=== PATIENT | male | born 1965 | race African-American/Black ===

== ENCOUNTER 2019-05-16 16:26 | Inpatient (IN) | payer SELFPAY ==
[~2019-05-16] VITALS: Ht 188 cm; Wt 89.4 kg
[2019-05-16] MEDS ORDERED: SODIUM CHLORIDE 0.9% 1,000 ML IV ONE (16:42)
[2019-05-16 17:40] LABS: BASOPHILS % 0.4 % (0.0-2.0); EOSINOPHILS % 0.7 % (0.0-5.0); HEMOGLOBIN. 14.5 g/dL (14.0-18.0); MEAN CORPUSCULAR HEMOGLOBIN 32.5 pg (28.0-32.0); MEAN CORPUSCULAR VOLUME 94.3 fL (80.0-94.0); MEAN PLATELET VOLUME 7.5 fl (7.4-10.4); MONOCYTES % 8.5 % (2.0-8.0); NEUTROPHILS % 65.4 % (40.0-76.0); PLATELET 182 x1000/uL (130-400); RED BLOOD CELL COUNT 4.45 mill/uL (4.7-6.1); RED CELL DISTRIBUTION WIDTH 14.4 % (11.6-14.6)
[2019-05-16 17:45] LABS: CHLORIDE 104 mEq/L (98-107)
[2019-05-16 17:48] LABS: PARTIAL THROMBOPLASTIN TIME 23.3 sec (23.4-31.0); PROTHROMBIN TIME 10.7 sec (9.6-11.0)
[2019-05-16 17:49] LABS: ETHANOL BLOOD < 10 mg/dL
[2019-05-16 17:51] LABS: LDL CHOLESTEROL 129 mg/dL (5-100)
[2019-05-16] MEDS ORDERED: ASPIRIN 325MG EC TABLET PO ONE (21:45)
[2019-05-16] MEDS ORDERED: IOHEXOL-350 100 ML BOTTLE ONE (23:00)
[2019-05-17] MEDS ORDERED: ONDANSETRON HCL 4MG/2ML INJ IV PRN (07:30)
[2019-05-17] MEDS ORDERED: ACETAMINOPHEN 325MG TABLET PO PRN (07:30)
[2019-05-17 09:02] LABS: CLARITY URINE CLEAR (CLEAR); COLOR URINE DARK YELLOW (YELLOW); KETONES URINE TRACE (NEGATIVE); LEUKOCYTE ESTERASE URINE NEGATIVE (NEGATIVE); NITRITE URINE NEGATIVE (NEGATIVE); OCCULT BLOOD URINE TRACE (NEGATIVE); PROTEIN URINE NEGATIVE (NEGATIVE); SPECIFIC GRAVITY URINE 1.033 (1.005-1.030)
[2019-05-17 09:24] LABS: *AMPHETAMINES SCREEN URINE NEGATIVE (NEGATIVE); *BARBITURATES SCREEN URINE NEGATIVE (NEGATIVE); *BENZODIAZEPINES SCREEN URINE NEGATIVE (NEGATIVE); *COCAINE SCREEN URINE NEGATIVE (NEGATIVE); CANNABINOID URINE SCREEN NEGATIVE (NEGATIVE); METHADONE URINE SCREEN NEGATIVE (NEGATIVE); OPIATES URINE SCREEN NEGATIVE (NEGATIVE); PHENCYCLIDINE URINE SCREEN NEGATIVE (NEGATIVE)
[2019-05-17] MEDS ORDERED: ENOXAPARIN 40MG/0.4ML SYR SUBCUT SCH (10:00)
[2019-05-17 10:15] VITALS: BP 159/90
[2019-05-17 12:00] VITALS: BP 144/92
[2019-05-17 16:00] VITALS: BP_SYST 129; BP_SYST 133; BP_DIAS 78; BP_DIAS 85
[2019-05-17] MEDS: ENOXAPARIN 40MG/0.4ML SYR SUBCUT SCH (16:24)
[2019-05-17] MEDS: ASPIRIN 81MG TABLET PO SCH (16:31)
[2019-05-17 20:00] VITALS: BP 152/92
[2019-05-17] MEDS: ATORVASTATIN CALCIUM 40MG TABLET PO SCH (20:19)
[2019-05-17 20:30] VITALS: BP 140/62
[2019-05-18] VITALS (7 sets, daily range): BP systolic 116–135; BP diastolic 69–76
[2019-05-18] MEDS: ASPIRIN 81MG TABLET PO SCH (08:49)
[2019-05-18] MEDS: POTASSIUM CHLORIDE 20MEQ TABLET SR PO SCH (08:49)
[2019-05-18 09:42] LABS: BASOPHILS % 0.5 % (0.0-2.0); EOSINOPHILS % 1.8 % (0.0-5.0); HEMATOCRIT. 40.9 % (42.0-52.0); HEMOGLOBIN. 14.1 g/dL (14.0-18.0); LYMPHOCYTES % 38.4 % (20.0-50.0); MEAN CORPUSCULAR HEMOGLOBIN 32.6 pg (28.0-32.0); MEAN CORPUSCULAR VOLUME 94.5 fL (80.0-94.0); MEAN PLATELET VOLUME 7.6 fl (7.4-10.4); MONOCYTES % 9.1 % (2.0-8.0); NEUTROPHILS % 50.2 % (40.0-76.0); PLATELET 202 x1000/uL (130-400); RED BLOOD CELL COUNT 4.33 mill/uL (4.7-6.1); RED CELL DISTRIBUTION WIDTH 14.6 % (11.6-14.6)
[2019-05-18 09:48] LABS: CHLORIDE 104 mEq/L (98-107)
[2019-05-18] MEDS: CLOPIDOGREL 75MG TABLET PO SCH (11:22)
[2019-05-18] MEDS ORDERED: AMLODIPINE 2.5MG TABLET PO SCH (11:30)
[2019-05-18] MEDS ORDERED: ASPIRIN 81MG EC TABLET PO SCH (11:30)
[2019-05-18] MEDS: ENOXAPARIN 40MG/0.4ML SYR SUBCUT SCH (13:06)
[2019-05-18 17:02] LABS: T4 FREE 1.17 ng/dL (0.76-1.46)
[2019-05-18 17:12] LABS: FOLIC ACID (FOLATE) SERUM 17.1 ng/mL (>5.38)
[2019-05-18] MEDS: ATORVASTATIN CALCIUM 40MG TABLET PO SCH (20:40)
[2019-05-19] VITALS: BP 108/49
[2019-05-19 04:00] VITALS: BP 145/86
[2019-05-19 07:18] LABS: BASOPHILS % 0.7 % (0.0-2.0); EOSINOPHILS % 2.1 % (0.0-5.0); HEMATOCRIT. 39.8 % (42.0-52.0); HEMOGLOBIN. 13.8 g/dL (14.0-18.0); LYMPHOCYTES % 40.9 % (20.0-50.0); MEAN CORPUSCULAR HEMOGLOBIN 32.9 pg (28.0-32.0); MEAN CORPUSCULAR VOLUME 94.5 fL (80.0-94.0); MEAN PLATELET VOLUME 7.4 fl (7.4-10.4); MONOCYTES % 8.3 % (2.0-8.0); PLATELET 196 x1000/uL (130-400); RED BLOOD CELL COUNT 4.21 mill/uL (4.7-6.1); RED CELL DISTRIBUTION WIDTH 14.2 % (11.6-14.6)
[2019-05-19 08:00] VITALS: BP 124/83
[2019-05-19 08:02] LABS: CHLORIDE 106 mEq/L (98-107)
[2019-05-19] MEDS: POTASSIUM CHLORIDE 20MEQ TABLET SR PO SCH (09:06)
[2019-05-19] MEDS: ASPIRIN 81MG EC TABLET PO SCH (09:07)
[2019-05-19] MEDS: CLOPIDOGREL 75MG TABLET PO SCH (09:07)
[2019-05-19] MEDS: AMLODIPINE 2.5MG TABLET PO SCH (09:07)
[2019-05-19 12:00] VITALS: BP 138/88
[2019-05-19] MEDS: ENOXAPARIN 40MG/0.4ML SYR SUBCUT SCH (13:10)
[2019-05-19] MEDS ORDERED: ENOXAPARIN 60MG/0.6ML SYR SUBCUT SCH (15:15)
[2019-05-19 15:48] VITALS: BP 138/92
[2019-05-19] MEDS: CLONIDINE 0.1MG TABLET PO PRN (16:31)
[2019-05-19 20:00] VITALS: BP 130/81
[2019-05-19] MEDS: ATORVASTATIN CALCIUM 40MG TABLET PO SCH (20:50)
[2019-05-20] VITALS: BP 144/97
[2019-05-20 04:00] VITALS: BP 133/90
[2019-05-20 05:30] LABS: CHLORIDE 107 mEq/L (98-107)
[2019-05-20 05:31] LABS: BASOPHILS % 0.5 % (0.0-2.0); EOSINOPHILS % 1.9 % (0.0-5.0); HEMOGLOBIN. 14.2 g/dL (14.0-18.0); LYMPHOCYTES % 48.6 % (20.0-50.0); MEAN CORPUSCULAR HEMOGLOBIN 33.5 pg (28.0-32.0); MEAN CORPUSCULAR VOLUME 94.4 fL (80.0-94.0); MEAN PLATELET VOLUME 7.3 fl (7.4-10.4); MONOCYTES % 8.7 % (2.0-8.0); NEUTROPHILS % 40.3 % (40.0-76.0); PLATELET 202 x1000/uL (130-400); RED BLOOD CELL COUNT 4.24 mill/uL (4.7-6.1); RED CELL DISTRIBUTION WIDTH 14.2 % (11.6-14.6)
[2019-05-20 08:00] VITALS: BP 140/111
[2019-05-20] MEDS: POTASSIUM CHLORIDE 20MEQ TABLET SR PO SCH (09:02)
[2019-05-20] MEDS: ASPIRIN 81MG EC TABLET PO SCH (09:03)
[2019-05-20] MEDS: CLONIDINE 0.1MG TABLET PO PRN (09:03)
[2019-05-20] MEDS: CLOPIDOGREL 75MG TABLET PO SCH (09:03)
[2019-05-20] MEDS: AMLODIPINE 2.5MG TABLET PO SCH (09:03)
[2019-05-20] MEDS: ENOXAPARIN 100MG/ML SYR SUBCUT SCH ×2 (09:04→22:23)
[2019-05-20 12:00] VITALS: BP 114/62
[2019-05-20 16:00] VITALS: BP 123/85
[2019-05-20 20:00] VITALS: BP 136/88
[2019-05-20] MEDS: ATORVASTATIN CALCIUM 40MG TABLET PO SCH (22:23)
[2019-05-21] VITALS: BP 147/94
[2019-05-21 04:00] VITALS: BP 138/92
[2019-05-21 07:59] LABS: BASOPHILS % 0.4 % (0.0-2.0); EOSINOPHILS % 2.3 % (0.0-5.0); HEMATOCRIT. 41.1 % (42.0-52.0); HEMOGLOBIN. 14.5 g/dL (14.0-18.0); MEAN CORPUSCULAR HEMOGLOBIN 33.1 pg (28.0-32.0); MEAN CORPUSCULAR VOLUME 94.2 fL (80.0-94.0); MEAN PLATELET VOLUME 7.1 fl (7.4-10.4); MONOCYTES % 9.8 % (2.0-8.0); NEUTROPHILS % 39.5 % (40.0-76.0); PLATELET 211 x1000/uL (130-400); RED BLOOD CELL COUNT 4.36 mill/uL (4.7-6.1); RED CELL DISTRIBUTION WIDTH 14.3 % (11.6-14.6)
[2019-05-21 08:00] VITALS: BP 133/88
[2019-05-21 08:17] LABS: CHLORIDE 107 mEq/L (98-107)
[2019-05-21] MEDS: POTASSIUM CHLORIDE 20MEQ TABLET SR PO SCH (08:49)
[2019-05-21] MEDS: CLOPIDOGREL 75MG TABLET PO SCH (08:49)
[2019-05-21] MEDS: AMLODIPINE 2.5MG TABLET PO SCH (08:50)
[2019-05-21] MEDS: ENOXAPARIN 100MG/ML SYR SUBCUT SCH ×2 (08:50→22:20)
[2019-05-21] MEDS: ASPIRIN 81MG EC TABLET PO SCH (08:50)
[2019-05-21 12:00] VITALS: BP 130/96
[2019-05-21] MEDS: CLONIDINE 0.1MG TABLET PO PRN (13:15)
[2019-05-21 16:00] VITALS: BP 114/77
[2019-05-21 20:00] VITALS: BP 134/95
[2019-05-21] MEDS: ATORVASTATIN CALCIUM 40MG TABLET PO SCH (22:20)
[2019-05-22] VITALS: BP 110/73
[2019-05-22 04:00] VITALS: BP 128/93
[2019-05-22 08:00] VITALS: BP 107/76
[2019-05-22] MEDS: AMLODIPINE 2.5MG TABLET PO SCH (09:00)
[2019-05-22] MEDS: POTASSIUM CHLORIDE 20MEQ TABLET SR PO SCH (10:06)
[2019-05-22] MEDS: ENOXAPARIN 100MG/ML SYR SUBCUT SCH ×2 (10:07→20:54)
[2019-05-22 12:00] VITALS: BP_SYST 113; BP_DIAS 72; BP_DIAS 76
[2019-05-22 13:08] LABS: ANTI-THROMBIN ACTIVITY 117 % (75-135); LUPUS ANTICOAG INTERPRETATION Comment: (.); PROTEIN C FUNCTIONAL 120 % (73-180); PTT-LA 34.3 sec (0.0-51.9)
[2019-05-22] MEDS ORDERED: ASPIRIN 81MG EC TABLET PO SCH (14:45)
[2019-05-22] MEDS ORDERED: CLOPIDOGREL 75MG TABLET PO NR (14:45)
[2019-05-22 16:00] VITALS: BP 140/87
[2019-05-22 20:00] VITALS: BP 128/89
[2019-05-22] MEDS: ATORVASTATIN CALCIUM 40MG TABLET PO SCH (20:53)
[2019-05-23] VITALS: BP 132/89
[2019-05-23 04:00] VITALS: BP 140/94
[2019-05-23 06:32] LABS: BASOPHILS % 0.6 % (0.0-2.0); EOSINOPHILS % 1.8 % (0.0-5.0); HEMATOCRIT. 43.4 % (42.0-52.0); HEMOGLOBIN. 14.9 g/dL (14.0-18.0); LYMPHOCYTES % 48.2 % (20.0-50.0); MEAN CORPUSCULAR HEMOGLOBIN 32.8 pg (28.0-32.0); MEAN CORPUSCULAR VOLUME 95.4 fL (80.0-94.0); MEAN PLATELET VOLUME 7.3 fl (7.4-10.4); NEUTROPHILS % 40.4 % (40.0-76.0); PLATELET 225 x1000/uL (130-400); RED BLOOD CELL COUNT 4.55 mill/uL (4.7-6.1); RED CELL DISTRIBUTION WIDTH 14.4 % (11.6-14.6)
[2019-05-23 06:34] LABS: CHLORIDE 107 mEq/L (98-107)
[2019-05-23 08:00] VITALS: BP 128/87
[2019-05-23] MEDS: AMLODIPINE 2.5MG TABLET PO SCH (08:33)
[2019-05-23] MEDS: POTASSIUM CHLORIDE 20MEQ TABLET SR PO SCH (08:33)
[2019-05-23] MEDS: ENOXAPARIN 100MG/ML SYR SUBCUT SCH ×2 (08:34→20:07)
[2019-05-23] MEDS ORDERED: CLOPIDOGREL 75MG TABLET PO SCH (09:00)
[2019-05-23 12:00] VITALS: BP 137/93
[2019-05-23 16:00] VITALS: BP 114/77
[2019-05-23 20:00] VITALS: BP 149/102
[2019-05-23] MEDS: CLONIDINE 0.1MG TABLET PO PRN (20:06)
[2019-05-23] MEDS: ATORVASTATIN CALCIUM 40MG TABLET PO SCH (20:06)
[2019-05-24] VITALS: BP 132/95
[2019-05-24 04:00] VITALS: BP 115/90
[2019-05-24 08:00] VITALS: BP 111/58
[2019-05-24] MEDS: POTASSIUM CHLORIDE 20MEQ TABLET SR PO SCH (08:27)
[2019-05-24] MEDS: ENOXAPARIN 100MG/ML SYR SUBCUT SCH ×2 (08:28→20:09)
[2019-05-24] MEDS: AMLODIPINE 2.5MG TABLET PO SCH (08:28)
[2019-05-24 12:00] VITALS: BP 127/87
[2019-05-24 16:00] VITALS: BP 137/96
[2019-05-24 20:00] VITALS: BP 134/89
[2019-05-24] MEDS: ATORVASTATIN CALCIUM 40MG TABLET PO SCH (20:09)
[2019-05-25] VITALS: BP 136/95
[2019-05-25 04:00] VITALS: BP 129/78
[2019-05-25] MEDS: POTASSIUM CHLORIDE 20MEQ TABLET SR PO SCH (09:35)
[2019-05-25] MEDS: ENOXAPARIN 100MG/ML SYR SUBCUT SCH (09:35)
[2019-05-25] MEDS: AMLODIPINE 2.5MG TABLET PO SCH (09:36)
[2019-05-27 17:06] LABS: ANTI-CARDIOLIPIN AB IGA < 9 APL U/mL (0-11); ANTI-CARDIOLIPIN AB IGG < 9 GPL U/mL (0-14); ANTI-CARDIOLIPIN AB IGM < 9 MPL U/mL (0-12)
== END 2019-05-25 19:26 | disposition home or self-care (01) | DRG 45 ==
LOC: ER 16:26 → 5WST 23:17 → EDBEDREQ 23:20 → ENRESERV 05-17 07:43 → 6EST 05-23 03:55
PROVIDERS: ADMIT Internal Medicine; ATTEND Internal Medicine
DX: I63.9 Cerebral infarction, unspecified (principal); G93.40 Encephalopathy, unspecified; G81.91 Hemiplegia, unspecified affecting right dominant side; I12.0 Hypertensive chronic kidney disease with stage 5 chronic kidney disease or end stage renal disease; N18.6 End stage renal disease; J44.9 Chronic obstructive pulmonary disease, unspecified; R13.10 Dysphagia, unspecified; E78.5 Hyperlipidemia, unspecified; E87.6 Hypokalemia; F10.10 Alcohol abuse, uncomplicated; R29.810 Facial weakness; Z60.2 Problems related to living alone; R47.1 Dysarthria and anarthria; W18.39XA Other fall on same level, initial encounter; F17.210 Nicotine dependence, cigarettes, uncomplicated; Z79.01 Long term (current) use of anticoagulants; Y92.410 Unspecified street and highway as the place of occurrence of the external cause; Z79.02 Long term (current) use of antithrombotics/antiplatelets; Z99.2 Dependence on renal dialysis; Z79.82 Long term (current) use of aspirin; Z82.49 Family history of ischemic heart disease and other diseases of the circulatory system; Z79.899 Other long term (current) drug therapy; Y93.89 Activity, other specified; Y92.89 Other specified places as the place of occurrence of the external cause; Y99.8 Other external cause status
CPT/HCPCS: 36415; 70486; 70496; 70498; 70551; 71045; 80048; 80053; 80061; 80305; 80320; 81003; 81400; 81403; 81407; 81479; 82607; 82746; 82962; 83036; 83721; 84439; 84443; 84481; 84484; 85025; 85300; 85303; 85306; 85613; 85732; 86147; 92610; 93005; 93306; 97110; 97112; 97116; 97162; 97166; 97530; 99285; J1650; J7030; Q9967; G0480